=== PATIENT | female | born 1955 | race Caucasian/White ===

== ENCOUNTER 2023-11-25 12:51 | Outpatient (AMB) | payer MEDICARE, SELFPAY ==
--- NOTE | 2023-11-25 12:55 | A.OFFVIS_ITS ---
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 Patient reports she has been suffering with this pain for greater than 10 years. She was recently seen managing orthopedic surgeons with a discussed knee rep lacement. She is not ready to proceed with surgical joint replacement at this time. She states she has uneasy about surgeries. Pain today is rated as a 10/10 constant throughout the day. Patient is taking Tylenol and Motrin 3 times daily for the last 5 months. She has also tried topical diclofenac without improvement of her symptoms. Completed physical therapy last week (11/2023), more than 8 sessions. Reports that it helped with function and mobility but did not improve her pain. A couple years ago she underwent gel injections to her knees, a series of 3 injections, without improvement in her pain. She is status post right meniscal repair on October 2022. Helped with other pain, her persistent arthritis pain is different. In terms of muscle damage condition is described as throbbing, pounding, cramping, dull, sore, hurting, aching, tiring, exhausting, stabbing, squeezing, sharp. [facility] Medical History (Updated 11/25/23 @ 14:41 by Camille Jenkins, ETHICS INSTRUCTOR, WORK CHECKER) Obesity, unspecified Bilateral primary osteoarthritis of knee Primary generalized (osteo)arthritis Sedative, hypnotic or anxiolytic dependence, uncomplicated Acute sinusitis, unspecified Coronavirus infection Idiopathic osteoarthritis Vitamin D deficiency Idiopathic osteoporosis GERD (gastroesophageal reflux disease) Hypnotic dependence Kidney stone Iron deficiency anemia Migraine without aura Anxiety disorder Dyslipidemia Social History (Updated 11/25/23 @ 13:08 by Jayashree Oconnor) Alcohol intake: current Alcohol intake frequency: holidays/special occasions only Patient Tobacco Use Status: Never used Tobacco Review of Systems Const All systems reviewed & are unremarkable except as noted in HPI and below Physical Exam Vital Signs: Last Vital Signs Pulse 90 11/25/23 13:05 BP 174/88 H 11/25/23 13:05 Pulse Ox 98 11/25/23 13:05 Oxygen Delivery Method Room Air 11/25/23 13:05 BMI result Body Mass Index 30.8 General: awake, alert, oriented. Answers questions appropriately. Fully engaged in examination. Skin: warm, dry, intact HEENT: Normocephalic. Hearing intact. Cardiac: External chest normal in appearance. Respiratory: No cough, audible wheezing or stridor. Abdomen: without gross distension. MS: No obvious swelling or deformities. Right knee: Tenderness posteriorly. Left knee: Tender to palpation lateral joint line. Limited range of motion. Neurological: Oriented to person, place, time and situation. Thought process intact. Psychiatric: Appropriate mood and affect. Good judgment and insight. Assessment & Plan Assessment & Plan (1) Bilateral primary osteoarthritis of knee: Code(s): M17.0 - Bilateral primary osteoarthritis of knee Category: Medical Plan Patient presented the office today for evaluation and management of her chronic bilateral knee pain Patient has exhausted greater than 6 months of conservative therapy including Tylenol, nonsteroidal anti-inflammatory medications, physical therapy, inject ions, topical medications all without improvement of her symptoms. New Rx: Gabapentin 100 mg p.o. t.i.d. patient advised on cautions for use. Discussed options for treatment including diagnostic interventional testing, therapeutic steroid injections, peripheral nerve stimulation with Sprint, RFA and more permanent neuromodulation. Informational pamphlets provided. Discussed with patient at length her diagnosis and treatment options. She will consider bilateral saphenous Sprint PNS. She is not ready to commit at this time and will call the office when she is ready to proceed. All questions and concerns have been answered and patient agrees with the plan. Follow up after in 2 months, or when ready to proceed with Sprint PNS. Medications: New gabapentin 100 mg PO TID 90 caps 1RF Coding Level of Care Code New Pt Level 4 (60858) Diagnoses Bilateral primary osteoarthritis of knee M17.0
[2023-11-25 13:05] VITALS: BP 174/88; PULSE 90; O2SAT 98; BMI 30.8
[2023-11-25 14:50] VITALS: BP 143/77
== END 2023-11-25 13:43 | disposition home or self-care (01) ==
PROVIDERS: PCP Internal Medicine; Visit Provider Registered Nurse Emergency
DX: M17.0 Bilateral primary osteoarthritis of knee (principal)
CPT/HCPCS: 99204

== ENCOUNTER → 2023-11-25 12:51 | Outpatient (BNVA) | payer MEDICARE, SELFPAY | PROVIDERS: PCP Internal Medicine; Visit Provider Registered Nurse Emergency | DX: M17.0 Bilateral primary osteoarthritis of knee (principal) | CPT/HCPCS: 99202 ==